=== PATIENT | male | born 1955 | race Caucasian/White ===

== ENCOUNTER → 2017-01-05 | Outpatient (CLI) | payer BC ==
--- NOTE | 2017-01-05 15:57 | XR ---
EXAMINATION TYPE: XR foot complete LT DATE OF EXAM: 01/05/2017 COMPARISON: NONE HISTORY: 61-year-old male plantar fasciitis, left heel pain for 3 months TECHNIQUE: 3 views FINDINGS: There is moderate sized plantar calcaneal spur. No acute fracture, subluxation, or dislocation. IMPRESSION: Moderate-sized plantar calcaneal spur. Findings may reflect underlying plantar fasciitis.
== END | disposition home or self-care (01) ==
LOC: RADXRMAIN 10:59
PROVIDERS: ATTEND Internal Medicine
DX: M77.32 Calcaneal spur, left foot (principal)

== ENCOUNTER → 2018-09-07 | Outpatient (CLI) | payer BC ==
--- NOTE | 2018-09-07 12:58 | US ---
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 No hx of blood clots. Not on blood thinners. Ante rior left leg redness and tenderness. Patient states having hx of varicose veins with stripping and burning. SIDE PERFORMED: Left TECHNIQUE: The lower extremity deep venous system is examined utilizing real time linear array sonog tatiana with graded compression, doppler sonography and color-flow sonography. VESSELS IMAGED: External Iliac Vein (EIV) Common Femoral Vein Deep Femoral Vein Greater Saphenous Vein * Femoral Vein Popliteal Vein Small Saphenous Vein * Proximal Calf Veins (* superficial vessels) Grayscale, color doppler, spectral doppler imaging performed of the deep veins of the left lower extr emity. There is normal flow, compressibility, vascular waveforms. Left Leg: Negative for DVT. Area of concern scanned at anterior left lower leg. Prominent varicose veins seen with vascular flow and compressible. Slight edema seen at area. IMPRESSION: 1. No sonographic evidence of deep venous thrombosis within the left lower extremity. 2. Varicosities within the anterior left lower extremity are seen without superficial venous thrombus . Minimal subcutaneous edema is noted.
== END ==
LOC: RADUSWWP 12:14
PROVIDERS: ATTEND Internal Medicine
DX: I83.92 Asymptomatic varicose veins of left lower extremity (principal)

== ENCOUNTER → 2018-09-12 | Outpatient (CLI) | payer BC ==
--- NOTE | 2018-09-12 10:38 | US ---
EXAMINATION TYPE: US abdomen limited DATE OF EXAM: 09/12/2018 COMPARISON: NONE CLINICAL HISTORY: R94.5 Abnormal results of liver function studies. EXAM MEASUREMENTS: Liver Length: 17.0 cm Gallbladder Wall: 0.3 cm CBD: 0.3 cm Right Kidney: 10.9 x 4.8 x 4.7 cm Severe overlying bowel gas making exam technically difficult and limited. Pancreas: Obscured by bowel gas Liver: Limited visualization. There is increased echogenicity of the hepatic parenchyma with diminish ed visualization of the portal triads most commonly relating to hepatic steatosis and limiting evalua tion for underlying hepatic masses. Gallbladder: Solitary calculus measures 0.9 cm Evidence for sonographic Tillman's sign: no CBD: wnl Right Kidney: cyst measuring 1.4 x 1.2 x 1.5cm IMPRESSION: 1. Sonographic findings most commonly related to hepatic steatosis. Correlate with liver function kasandra ts. 2. Cholelithiasis without current sonographic evidence of acute cholecystitis. 3. Nonvisualization of the pancreas, obscured by overlying bowel gas. 4. Simple appearing Bosniak type I cyst of the right kidney measuring 1.5 cm.
== END | disposition home or self-care (01) ==
LOC: RADUSWWP 09:16
PROVIDERS: ATTEND Internal Medicine
DX: K80.20 Calculus of gallbladder without cholecystitis without obstruction (principal); N28.1 Cyst of kidney, acquired
CPT/HCPCS: 76705

== ENCOUNTER → 2020-07-07 | Outpatient (CLI) | payer BC ==
--- NOTE | 2020-07-07 16:00 | XR ---
EXAMINATION TYPE: XR shoulder complete RT DATE OF EXAM: 07/07/2020 CLINICAL HISTORY: Shoulder pain TECHNIQUE: Three views of the right shoulder are obtained. COMPARISON: None. FINDINGS: There is no acute fracture/dislocation evident in the right shoulder. Mild narrowing of th e right acromioclavicular joint suggestive of osteoarthritis. Glenohumeral joint space is intact.. T he visualized ribs are intact and unremarkable. 8 mm Stippled sclerotic lesion in the right proximal humerus is most suggestive of an enchondroma. IMPRESSION: 1. There is no acute fracture or dislocation in the right shoulder. Mild narrowing of the right acrom ial clavicular joint suggestive of osteoarthritis.
== END | disposition home or self-care (01) ==
LOC: RADXRMAIN 14:11
PROVIDERS: ATTEND Internal Medicine
DX: M25.811 Other specified joint disorders, right shoulder (principal)

== ENCOUNTER → 2023-11-21 | Outpatient (CLI) | payer MEDICARE ==
--- NOTE | 2023-11-21 15:54 | US ---
EXAMINATION TYPE: US venous doppler duplex LE RT DATE OF EXAM: 11/21/2023 3:38 PM COMPARISON: NONE CLINICAL INDICATION: Male, 68 years old with history of RLE; I80.01 PHLEBITIS AND THOMBOPHLB OF SUPER FIC; Hx LLE DVT; Pain swelling, and redness within upper right calf x 1 day TECHNIQUE: The lower extremity deep venous system is examined utilizing real time linear array sonog tatiana with graded compression, color doppler sonography, and spectral doppler. SIDE PERFORMED: Right FINDINGS: VESSELS IMAGED: Common Femoral Vein Deep Femoral Vein Greater Saphenous Vein * Femoral Vein Popliteal Vein Small Saphenous Vein * Proximal Calf Veins (* superficial vessels) Right Leg: Negative for DVT; Superficial acute clot within a branch of the GSV within the calf at th e site of the patients redness, warmth and swelling Grayscale, color doppler, spectral doppler imaging performed of the deep veins of the lower extremiti es. IMPRESSION: 1. No evidence for right deep vein thrombosis. 2. Superficial femoral phlebitis within the greater saphenous vein compatible with thrombophlebitis. [facility], Workstation: [id number], 11/21/2023 3:52 PM
== END | disposition home or self-care (01) ==
LOC: RADUSWWP 14:51
PROVIDERS: ATTEND Internal Medicine
DX: I80.01 Phlebitis and thrombophlebitis of superficial vessels of right lower extremity (principal)